=== PATIENT | female | born 2000 | race Caucasian/White ===

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

== ENCOUNTER 2023-09-09 15:09 | Inpatient (IN) ==
--- OUTSIDE RECORDS SUMMARY | 2023-09-09 15:14 | External Medical Summary | Summary of Care ---
Author Name Unknown Organization [facility] Address [address] [place] [address] Phone [phone] Care Team Providers Care Maintenance Services Dispatcher Name Role Phone Trena Moore MD Primary Care Prov ider Reason for Visit * Reason Comments Acute Encounter Details Date Type Department Care Team (Late st Contact Info) Description 08/28/2023 12:40 PM EST Office Visit Family Medicine [address] [id number] Rick Morrison MD [address] [place], [place] [id number] [id number] Viral URI* Allergies No known active allergiesdocumented as of this encounter (statuses as of 08/28/2023) Medications Medication Sig Dispensed Refills Start Date End Date Status Levocetirizine Dihydrochloride (XYZAL) 5 MG TabletIndications:Seas onal allergic rhinitis due to pollen Take 1 Tab by mouth every evening. 30 Tab 11 02/18/2019 Active Vitamin D3 125 MCG (5000 UT) Oral Capsule Take 1 Capsule by mouth in the morning. 0 Active Fluticasone-Salmeterol 115-21 MCG/ACT Inhalation Aerosol (Advair HFA) Inhale 2 Puffs by mouth in the morning and 2 Puffs before bedtime. 12 g 12 01/25/2023 Active FLUoxetine HCl 40 MG Oral Capsule (PROzac) Take 1 Capsule by mouth in the morning. 0 Active Atomoxetine HCl 60 MG Oral Capsule (Strattera) Take 1 Capsule by mouth in the morning. 0 Active Omeprazole 20 MG Oral Capsule Delayed Release (PriLOSEC) Take 1 Capsule by mouth in the morning. 0 Active Vyvanse 40 MG Oral Capsule Take 1 Capsule by mouth in the morning. Every morning.. 0 06/15/2023 Active Ajovy 225 MG/1.5ML Subcutaneous Solution Auto-injector Once a month 0 07/06/2023 Active Nurtec 75 MG Oral Tablet Disintegrating (Rimegepant Sulfate) Take by mouth. 0 Active Atenolol 25 MG Oral Tablet (Tenormin)Indications: Palpitations,Primary hypertension Take 1 Tablet by mouth in the morning. 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 3 Puff IN PRN 11/21/2022 11/21/2023 Active documented as of this encounter (statuses as of 08/28/2023) Active Problems Problem Noted Date Diagnosed Date BMI 31.0-31.9,adult 07/10/2023 Overview: 187 Binge eating 07/10/2023 Overview: on Vyvanse 40 mg Maggie Hargrove Prediabetes 06/19/2023 Overview: 5.7/117 Bipolar 1 disorder 10/13/2022 Witnessed episode of apnea 10/13/2022 Irritable bowel syndrome with diarrhea 0 Adjustment reaction with anxiety and depression 06/29/2018 Migraine without aura and wi thout status migrainosus, not intractable 04/27/2018 Acne vulgaris 01/09/2017 Seasonal allergies documented as of this encounter (statuses as of 08/28/2023) Resolved Problems Problem Noted Date Diagnosed Date Resolved Date Unspecified mood (affective) disorder 10/29/2021 10/13/2022 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/2021 Diarrhea 05/29/2020 07/27/2020 Anxiety and depression 09/18/201910/29 Current moderate episode of major depressive disorder without prior episode 01/28/2019 0 Attention 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 hyperactivity 06/29/2018 01/28/2019 Thoracolumbar back pain 04/27/201801/10 Overweight (BMI 25.0-29.9) 04/27/2018 0 10/13/2022 Allergic rhinitis 04/10/2018 01/28/2019 Allergic conjunctivitis, bilateral 04/10/2018 06/29/2018 Seborrheic dermatitis 01/09/20172017 documented as of this encounter (statuses as of 08/28/2023) Immunizations Name Administration Dates Next Due COVID-19 mRNA, LNP-s, No Pre serve, 2-Dose Series (Pfizer) 09/28/2020,08/31/2020 DTaP Dipth/Tet/Acell Pertussis (Infanrix), Peds 05/02/2005,11/16/2000,1999,10/07,1999 H1N1 2009 Influenza, Intranasal 07/24/2009 HIB PRP-T, 4 dose (ActHib) 11/16/2000,,1999,07/07 HPV Vaccine, 4-Valent 06/10/2011,11/15/2010,11/2010 Hepatitis B, 0-19 yrs 07/10/2000,03/10/2000,11/10 IPV - Polio Virus Vaccine (Inact) 2004,03/10/2000,1999,07/07 MMR - Measles/Mumps/Rubella Vaccine 05/02/2005,1 Meningococcal Conjugate Vacc ine (Menactra/Menveo) 05/04/2016,09/13/2010 PPD 10/29/2021,05/04/2016 Pneumococcal Conjugate Vacci ne, 7 Valent 03/10/2000 Seasonal Influenza Intranasal 09/13/2010, 009,08/21/2006 Seasonal Influenza, PF, 6 M & above, IM , (FluLaval or Fluzone) 06/11/2021,06/29/2020,12/27/2019 Seasonal Influenza, Quadriva lent, No Preserve, IM 07/14/2016 Seasonal Influenza, Split, I IV3, With Preserve, Inj 07/09/2018 TDAP (age 10 and older)(Boostrix) 05/05/2017 TDAP (age 11 and older)(Adacel) 09/13/2010 Varicella Vaccine (Chicken Pox) 03/23/2009,07/10 documented as of this encounter Social History Tobacco Use Types Packs/Day Years Used Date Smoking Tobacco: Never Smokeless Tobacco: Never Alcohol Use Standard Drinks/Week Comments No 0 (1 standard drink = 0.6 oz pur e alcohol) PHQ-2 Answer Date Recorded PHQ-2 Score 17 07/27/2020 Hunger Vital Sign Answer Date Recorded Worried About Running Out of Food in the Last Ye ar Never true 10/21/2019 Ran Out of Food in the Last Year Never true 10/21/2019 Sex and Gender Information Value Date Recorded Sex Assigned at Not on file Gender Identity Not on file Sexual Orientation Not on file Job Start Date Occupation Industry Not on file Not on file Not on file documented as of this encounter Last Filed Vital Signs Vital Sign Reading Time Taken Comments Blood Pressure 128/74 08/28/2023 12:32 PM EST Pulse 101 08/28/2023 12:32 PM EST Temperature 36.1 C (97 F) 08/28/2023 12:32 PM EST Respiratory Rate 16 08/28/2023 12:32 PM EST Oxygen Saturation 99% 08/28/2023 12:32 PM EST Inhaled Oxygen Concentration - - Weight 87.5 kg (193 lb) 08/28/2023 12:32 PM EST Height - - Body Mass Index 32.67 01/25/2023 2:12 PM EDT documented in this encounter Progress Notes * Rick Morrison MD - 08/28/2023 12:34 PM EST Lorrie started getting sick on 08/24 with sore throat, congestion, headache and now a couple of days of nausea and vomiting. She held the metformin that she just started but that does not help. She self tested negative for Covid. Ears hurt. She has sinus pressure. She needs a work excuse Past Medical History: Diagnosis Date Acne vulgaris 01/09/2017 Allergic rhinitis 04/10/2018 Anxiety Attention deficit disorder (ADD) without hyperactivity 06/29/2018 Binge eating 07/10/2023 on Vyvanse 40 mg Maggie Hargrove Bipolar 2 disorder (HCC) Prediabetes 06/14/2023 5.7/117 Seasonal allergies Seborrheic dermatitis 01/09/2017 Thoracolumbar back pain 04/27/2018 Witnessed episode of apnea Past Surgical History: Procedure Laterality Date COLONOSCOPY, DIAGNOSTIC (RECTUM) 07/14/2020 normal bx / COLONOSCOPY FLEXIBLE PROXIMAL DIAGNOSTIC performed by Kaylin Russell DO at [facility] EGD, FLEXIBLE, DIAGNOSTIC 07/14/2020 mild inflammatory changes on bx / ESOPHAGOGASTRODUODENOSCOPY (EGD), FLEXIBLE, TRANSORAL, DIAGNOSTICperformed by Kaylin Russell DO at [facility] REMOVE TONSILS & ADENOIDS, UNDER 12 2002 Review of patient's allergies indicates: No Known Allergies Social History Socioeconomic History Marital status: Significant Other Spouse name: Not on file Number of children: Not on file Years of education: Not on file Highest education level: Not on file Occupational History Not on file Tobacco Use Smoking status: Never Smokeless tobacco: Never Vaping Use Vaping Use: Never used Substance and Sexual Activity Alcohol use: No Drug use: No Sexual activity: Yes Partners: Male control/protection: Condom, Pill Other Topics Concern Not on file Social History Narrative Not on file Social Determinants of Health Financial Resource Strain: Not on file Food Insecurity: No Food Insecurity (10/21/2019) Hunger Vital Sign Worried About Running Out of Food in the Last Year: Never true Ran Out of Food in the Last Year: Never true Transportation Needs: Not on file Physical Activity: Not on file Stress: Not on file Social Connections: Not on file Intimate Partner Violence: Not on file Housing Stability: Not on file Current Outpatient Medications Medication Sig Dispense Refill Levocetirizine Dihydrochloride (XYZAL) 5 MG Tablet Take 1 Tab by mouth every evening. 30 Tab 11 Vitamin D3 125 MCG (5000 UT) Oral Capsule Take 1 Capsule by mouth in the morning. Fluticasone-Salmeterol 115-21 MCG/ACT Inhalation Aerosol (Advair HFA) Inhale 2 Puffs by mouth in the morning and 2 Puffs before bedtime. 12 g 12 FLUoxetine HCl 40 MG Oral Capsule (PROzac) Take 1 Capsule by mouth in the morning. Atomoxetine HCl 60 MG Oral Capsule (Strattera) Take 1 Capsule by mouth in the morning. Omeprazole 20 MG Oral Capsule Delayed Release (PriLOSEC) Take 1 Capsule by mouth in the morning. Vyvanse 40 MG Oral Capsule Take 1 Capsule by mouth in the morning. Every morning.. Ajovy 225 MG/1.5ML Subcutaneous Solution Auto-injector Once a month Nurtec 75 MG Oral Tablet Disintegrating (Rimegepant Sulfate) Take by mouth. Atenolol 25 MG Oral Tablet (Tenormin) Take 1 Tablet by mouth in the morning. 30 Tablet 5 Current Facility-Administered Medications Medication Dose Route Frequency Provider Last Rate Last Admin Albuterol Sulfate (Proventil) (2.5 MG/3ML) 0.083% inhalation solution 2.5 mg 2.5 mg Nebulizer PRN Myrna Dosrey PA-C 2.5 mg at 12/01/22 0905 albuterol (VENTOLIN HFA/PROVENTIL HFA) inhaler 3 Puff Inhalation PRN Myrna Dorsey PA-C O: Blood pressure 128/74, pulse 101, temperature 36.1 C (97 F), temperature source Tympanic, resp. rate 16, weight 87.5 kg (193 lb), SpO2 99%, not currently . General appearance: well developed, well nourished and in no acute distress. PERRLA, EOMI. No scleral icterus. No facial assymmetry. TM's and canals normal. There is a normal gag reflex. Pt has normal teeth and no pharyngeal inflammation. The palate has no lesions and the uvula is normal. Neck is supple without adenopathyor thyromegaly. Chest is symmetrical and moves normally. The lungs are clear without wheezes, rales, rhonchi or rubs, and the heart is regular without murmurs or gallops, or ectopy. PMI not displaced. A: Viral URI (Primary) - RESPIRATORY PATHOGEN PANEL, PCR; Future; Expected date: 08/28/2023 - RETURN TO WORK OR SCHOOL - predniSONE 20 MG Oral Tablet (Deltasone); two pills daily with food for 5 days, then one daily with food - RESPIRATORY PATHOGEN PANEL, PCR Follow Up: Return if symptoms worsen or fail to improve. documented in this encounter Nursing Notes * Lily Guzman LPN - 08/28/2023 12:30 PM EST Congestion, head pressure, nausea and vomiting, st. Symptoms started . Did 3 covid test andall negative. documented in this encounter Plan of Treatment Scheduled Orders Name Type Priority Associated Diagnoses Orde r Schedule RESPIRATORY PATHOGEN PANEL, PCR Lab Routine Viral URI Expected: 08/28/2023 (Approximate), Expires: 08/27/2024 Health Maintenance Due Date Last Done Comments Pneumococcal Vaccine: Pediat rics (0 to 5 Years) and At-Risk Patients (6 to 64 Years) (1 - PCV) 2005 Depression, Most Recent Scor e >= 10 (will fire each visit until score < 10) 07/28/2020 07/27/2020 Gonorrhea / Chlamydia Screen 11/11/202211/2021, 10/15/2020, 12/27/2019, Additional history exists COVID-19 Vaccine (3 - 2022-2 4 season) 2023 09/28/2020, 08/31/2020 Influenza Vaccine (FLU shot) (#1) 2023 06/11/2021, 06/29/2020, 12/27/2019, Additional history exists Pap Smear 10/15/2023 10/15/2020 HbA1c 06/14/2024 06/14/2023 DTaP,Tdap,and Td Vaccines (8 - Td or Tdap) 05/05/2027 05/05/2017, 09/13/2010, 05/02/2005, Additional history exists Hepatitis B Completed 07/10/2000, 02/11, 1999 GARDASIL-HPV IMMUNIZATION SERIES Completed 06/10/2011, 11/15/2010, 09/13/2010 MENINGOCOCCAL (MENACTRA/MENVEO) Completed , 09/13/2010 documented as of this encounter Medical Devices Not on filedocumented as of this encounter Visit Diagnoses Diagnosis Viral URI- Primary Acute upper respiratory infections of unspecified site documented in this encounter Additional Health Concerns Infection Onset Date Last Indicated Resolved Time Respiratory Rule-Out 08/28/2023 08/28/2023 documented as of this encounter Care Teams Maintenance Services Dispatcher Relationship Specialty Start Date End Date Trena Moore MD [address] [place] [address] [place] [id number] PCP - General Family Medicine 04/20/18 documented as of this encounter
--- OUTSIDE RECORDS SUMMARY | 2023-09-09 15:15 | External Medical Summary ---
Author Name Unknown Address Unknown Organization K01:[facility]ORY [facility] - [address] [facility] [place] [address] Laboratory Report Ordering Provider Test Date Status KAMALA KRAUSE 08/28/2023 12:41:48 Final Observation Date Value Abnormality Reference (Units ) Status Adenovirus DNA [Presence] in Nasopharynx by ANTONIETTA with non-probe detection 08/28/2023 12:41:48 Negative Negative Final Human coronavirus 229E RNA [Presence] in Nasopharynx by ANTONIETTA with non-probe detection 08/28/2023 12:41:48 Negative Negative Final Human coronavirus HKU1 RNA [Presence] in Nasopharynx by ANTONIETTA with non-probe detection 08/28/2023 12:41:48 Negative Negative Final Human coronavirus NL63 RNA [Presence] in Nasopharynx by ANTONIETTA with non-probe detection 08/28/2023 12:41:48 Negative Negative Final Human coronavirus OC43 RNA [Presence] in Nasopharynx by ANTONIETTA with non-probe detection 08/28/2023 12:41:48 Negative Negative Final SARS-CoV-2 (COVID-19) RNA [Presence] in Nasopharynx by ANTONIETTA with non-probe detection 08/28/2023 12:41:48 Negative Negative Final Human metapneumovirus RNA [Presence] in Nasopharynx by ANTONIETTA with non-probe detection 08/28/2023 12:41:48 Negative Negative Final Rhinovirus+Enterovirus RNA [Presence] in Nasopharynx by ANTONIETTA with non-probe detection 08/28/2023 12:41:48 Negative Negative Final Influenza virus A RNA [Presence] in Nasopharynx by ANTONIETTA with non-probe detection 08/28/2023 12:41:48 Negative Negative Final Influenza virus B RNA [Presence] in Nasopharynx by ANTONIETTA with non-probe detection 08/28/2023 12:41:48 Negative Negative Final Parainfluenza virus 1 RNA [Presence] in Nasopharynx by ANTONIETTA with non-probe detection 08/28/2023 12:41:48 Negative Negative Final Parainfluenza virus 2 RNA [Presence] in Nasopharynx by ANTONIETTA with non-probe detection 08/28/2023 12:41:48 Negative Negative Final Parainfluenza virus 3 RNA [Presence] in Nasopharynx by ANTONIETTA with non-probe detection 08/28/2023 12:41:48 Negative Negative Final Parainfluenza virus 4 RNA [Presence] in Nasopharynx by ANTONIETTA with non-probe detection 08/28/2023 12:41:48 Negative Negative Final Respiratory syncytial virus RNA [Presence] in Nasopharynx by ANTONIETTA with non-probe detection 08/28/2023 12:41:48 Positive Abnormal Negative Final Respiratory Syncytial virus detected by PCR (amplified probe). Test results reported to [facility]. Bordetella pertussis.pertuss is toxin promoter region [Presence] in Nasopharynx by ANTONIETTA with non-probe detection 08/28/2023 12:41:48 Negative Negative Final Chlamydophila pneumoniae DNA [Presence] in Nasopharynx by ANTONIETTA with non-probe detection 08/28/2023 12:41:48 Negative Negative Final Mycoplasma pneumoniae DNA [P resence] in Nasopharynx by ANTONIETTA with non-probe detection 08/28/2023 12:41:48 Negative Negative Final Bordetella parapertussis IS1 001 DNA [Presence] in Nasopharynx by ANTONIETTA with non-probe detection 08/28/2023 12:41:48 Negative Negative F inal
The primers that detect Rhinovirus may cross react with some Enterorviruses. The validation of bronchial specimens, tracheal aspirates, and throats for this assay was developed and performance characteristics determined by [employer]. The validation of alternate specimen types has not been cleared or approved by the U.S. Food and Drug Administration (FDA). It has been determined that such clearance or approval is not necessary. Performing [place] [facility] [place] [facility] [address]
--- OUTSIDE RECORDS SUMMARY | 2023-09-09 15:15 | External Medical Summary | Summary of Care ---
Author Name Unknown Organization [facility] Address [address] [place] [address] Phone [phone] Care Team Providers Care C D Reactor Operator Name Role Phone Trena Moore MD Primary Care Prov ider Reason for Visit * Reason Comments Acute Encounter Details Date Type Department Care Team (Late st Contact Info) Description 08/28/2023 12:40 PM EST Office Visit Family Medicine [address] [id number] Rick Morrison MD [address] [place], [place] [address] [id number] Viral URI* Allergies No known active [...] 11/21/2022 11/21/2023 Active albuterol (VENTOLIN HFA/PROVENTIL HFA) inhalerIndications: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 3 Puff IN PRN 11/21/2022 [...] performed by Kaylin Russell DO at [facility] EGD, FLEXIBLE, DIAGNOSTIC 07/14/2020 mild inflammatory changes on bx / ESOPHAGOGASTRODUODENOSCOPY (EGD), FLEXIBLE, TRANSORAL, DIAGNOSTICperformed by Kaylin Russell DO at [facility] REMOVE TONSILS & ADENOIDS, UNDER 12 [...] 2.5 mg 2.5 mg Nebulizer PRN Myrna Dorsey PA-C 2.5 mg at 12/01/22 0905 albuterol [...] documented as of this encounter Care Teams C D Reactor Operator Relationship Specialty Start Date End Date Trena Moore MD [address] [place] [address] [place] [id number] PCP - General Family Medicine 04/20/18 documented as of this encounter
--- OUTSIDE RECORDS SUMMARY | 2023-09-09 15:15 | External Medical Summary ---
Author Name Unknown Address Unknown Organization K01:LABORATORY [place] [address] [address] [facility] [address] Laboratory Report Ordering Provider Test Date Status RAY ROJAS 07/28/2023 10:09:00 Final hCG can serve as a screening assay for . However, early may not give a positive hCG test result. In addition, some non- women may have a hCG result slightly higher than the reference limit. Careful interpretation of the hCG with clinical history is required to determine whether the patient may be . Observation Date Value Abnormality Reference (Units ) Status Choriogonadotropin.intact +Beta subunit [Units/volume] in Serum or Plasma 07/28/2023 10:09:00 <0.6 <=1.0 (mIU/mL) Final Performing Location LABORATORY [facility] [place] - [facility] [address] [facility] [address]
[2023-09-09 16:03] LABS: Appearance Urine Clear (Clear); Bacteria Urine Automated 2+ (Negative); Bilirubin Urine Negative (Negative); Blood Urine 1+ (Negative); Cast Urine Automated 0 /lpf (0-5); Color Urine Yellow; Epithelial Cell Urine Auto >30 /lpf (0-5); Glucose Urine UA Negative (Negative); Ketones Urine Negative (Negative); Leukocyte Esterase Urine 1+ (Negative); Nitrite Urine Negative (Negative); Protein Urine Negative (Negative); Specific Gravity Urine 1.011 (1.000-1.030); Urobilinogen Urine Negative (Negative)
--- NOTE | 2023-09-09 16:20 | Emergency Department Note ---
Impression & Plan Ureteritis, Abdominal pain, Leukocytosis ED Provider Note CHIEF COMPLAINT: Lower abdominal pain with radiation to her left lower back HISTORY OF PRESENTING ILLNESS: This 23-year-old female patient presents to the emergency department for evaluation of lower abdominal pain and cramping that radiates to the left side of her lower back. Symptoms started 4 days ago. Denies any urinary symptoms other than urinating a little bit more frequently than normal. Denies any fevers or chills. Has nausea, but no vomiting. The patient has a history of ovarian cyst that tend to flare with her menses. However, usually her symptoms resolve quickly, but these symptoms seem more severe and are not going away. She is due for her period in 8 days. Denies vaginal discharge or abnormal vaginal bleeding. Recently got over RSV, but no longer coughing and denies chest pain or SOB. She rates her discomfort as 8/10. Has taken ibuprofen and Tylenol with minimal improvement of her symptoms. Zofran has not helped the nausea. Has not taken anything today yet. REVIEW OF SYSTEMS: See HPI for pertinent positives and pertinent negatives. ALLERGIES: NKDA MEDICATIONS: Latuda, Vyvanse, Trazodone, Citrucel, Xyzal, Folic Acid, Topamax, Ajovy PAST MEDICAL HISTORY: ADHD, Mood disorder, Sleep disorder, Binge eating disorder, Allergic Rhinitis, Migraines, chronic IBS, history of ovarian cysts PHYSICAL EXAM: VITALS: Vitals are noted on the nurse's note and reviewed by myself. GENERAL: Non toxic, no acute distress, non-diaphoretic. SKIN: Capillary refill <2 sec. EYES: PERRLA. EOMI. Conjunctivae without injection, sclerae without icterus. NOSE: Patent without discharge. MOUTH: Mucous membranes moist. Uvula midline. Airway patent. NECK: Supple without nuchal rigidity. HEART: Regular rate and rhythm without murmurs gallops or rubs. LUNGS: Clear to auscultation bilaterally without wheezes, rales or rhonchi. No retractions or accessory muscle use. ABDOMEN: Positive bowel sounds x 4. Normal tympanic percussion. Soft, diffuse tenderness to palpation over the entire abdomen, but worse in the lower quadrants. Mildly positive CVA tenderness bilaterally. No masses or organomegaly. Pink sign negative. No guarding or rebound tenderness. REPEAT ABDOMINAL EXAM: When I reevaluated the patient after her workup was completed, the patient did look more ill than when I first examined her. Repeat abdominal exam showed that she had increased lower abdominal tenderness with increased bilateral CVA tenderness worse on the left. She still had no rebound tenderness or rigidity, but did have mild guarding. MUSCULOSKELETAL: No gross musculoskeletal defects. NEURO: Patient was alert and oriented. No focal neurological deficits. DIFFERENTIAL DIAGNOSIS: Differential diagnosis includes hepatitis, pancreatitis, cholecystitis, cholelithiasis, appendicitis, kidney stone, pyelonephritis, UTI, gastritis, gastroenteritis, mesenteric adenitis, obstruction, constipation, hernia, abdominal abscess, perforation, diverticulitis, IBD, ischemic colitis, abdominal aortic aneurysm, , ectopic , ovarian cyst, ovarian torsion, acute salpingitis, or others. ED COURSE AND MEDICAL DECISION MAKING: MONITOR: Continuous monitor technician: Order was placed for continuous monitor technician. Patient was placed on the monitor technician and continuous pulse ox. Patient was noted to be in normal sinus rhythm at an initial rate of 90 bpm per my interpretation. MEDICATIONS GIVEN: 1 L normal saline solution bolus. Toradol 10 mg IV and Zofran 4 mg IV. Morphine 4 mg IV and Reglan 10 mg IV. Rocephin 2 g IV. INTERPRETATION OF LABS: I interpreted the labs with full lab results as below in the lab section of this note. White blood cell count elevated at 21. Hemoglobin normal at 13.3. Platelet count elevated at 416. CMP without significant abnormalities. Lactate was normal, but this was after IV fluids. Procalcitonin normal. Serum hCG is negative. Urinalysis with 1+ blood, 1+ leukocytes, 10-30 white blood cells, 5-10 red blood cells, greater than 30 epithelial cells, and 2+ bacteria. Urine culture is pending. Blood cultures pending. INTERPRETATION OF IMAGING: Imaging studies were interpreted by myself and read by radiology as per the imaging section of this note. Pelvic ultrasound negative for acute abnormalities and no evidence for ovarian cyst or ovarian torsion. CT scan of the abdomen and pelvis with IV contrast shows a cystitis with left sided ascending ureteritis, but no hydronephrosis or pyelonephritis. No evidence for appendicitis. Small amount of free pelvic fluid is likely physiologic. No other acute abnormalities. CONSULTATIONS: On-call hospitalist MDM SUMMARY: The patient was seen during a time of extreme volume and extreme acuity. Nursing triage protocols were initiated with IV lock, labs, and/or imaging studies conducted by protocol in the triage area. The patient was initially evaluated in a triage room and then re-examined once they were taken back to an exam room. Laboratory studies with a significant leukocytosis at 21,000. Urinalysis does appear consistent with an infection with urine culture pending. Lactate and procalcitonin normal, but these were after IV fluids. Blood cultures are pending. Pelvic ultrasound unremarkable. CT scan of the abdomen pelvis with IV contrast showed a cystitis with left sided ascending ureteritis, but no pyelonephritis or abscess. Initially the patient did have lower abdominal pain and mild CVA tenderness bilaterally when I examined her in triage. When I reexamined the patient when she was taken back to a room, her abdominal pain and CVA tenderness had worsened and she continued with nausea and pain despite the IV fluids, Toradol, and Zofran. She was then medicated with morphine and Reglan. The patient was given Rocephin 2 g IV. Due to the significant leukocytosis, the ascending infection on CT scan, and worsening symptoms, I discussed admission versus discharge with the patient. The patient feels her symptoms are getting worse and she agrees with admission for further inpatient evaluation and treatment. I spoke with the on-call hospitalist who agreed to admit the patient for further management. Please refer to their dictation for further details. The patient's care was transferred in stable condition. DIAGNOSIS: Left-sided ascending ureteritis Leukocytosis Abdominal pain Past Med/Surg History Medical History Vitamin D deficiency Scoliosis IBS (irritable bowel syndrome) Chronic gastritis Colitis Bipolar disorder Attention deficit disorder (ADD) Anxiety and depression High cholesterol Migraines Surgical History History of reduction of closed fracture History of tooth extraction History of tonsillectomy and adenoidectomy History of esophagogastroduodenoscopy (EGD) History of colonoscopy Family History Father Hypertension Mother Hypertension Family history of diabetes mellitus Grandfather (Paternal) Esophageal cancer Prostate cancer Heart disease Cancer of sinus Grandfather (Maternal) Heart disease Asthma Other No family history of adverse response to anesthesia No family history of bleeding disorder Social History Smoking Status: Never smoker Second Hand Exposure: No; Do You Dip or Chew Tobacco: No; Hx Alcohol Use: Yes Alcohol Intake Frequency: Monthly or Less Hx Substance Use: No Preferred Language: Taiwanese Punch Finisher Required: No Beliefs That Will Affect Care: None marital status: Single Current Living Situation: Family Current Living Situation Comment: WITH FAMILY AND BOYFRIEND current occupational status: employed current occupation: [employer] Feels Safe at Home: Yes Assistive Devices: Glasses Allergies Allergies Allergy/AdvReac Type Severity Reaction Status Date / Time coconut AdvReac Vomiting Verified 09/09/23 21:40 Home Meds Home Medications Medication Instructions Recorded Confirmed levocetirizine 5 mg tablet (Xyzal) 5 mg PO QAM 12/23/20 09/09/23 folic acid 1 mg tablet 1 mg PO DAILY 09/09/23 09/09/23 lisdexamfetamine 30 mg capsule 30 mg PO QAM 09/09/23 09/09/23 (Vyvanse) lurasidone 40 mg tablet 40 mg PO DAILYBD 09/09/23 09/09/23 methylcellulose (laxative) 500 mg 500 mg PO AMPM 09/09/23 09/09/23 tablet (Citrucel) topiramate 50 mg capsule 50 mg PO HS 09/09/23 09/09/23 sprinkle,extended release 24 hr (Qudexy XR) trazodone 50 mg tablet 50 mg PO HS 09/09/23 09/09/23 Results & Data (ED) Vital Signs Vital Signs - 24 hr 09/09/23 15:46 09/09/23 18:49 Temperature 36.8 C Temperature Source Oral Pulse Rate 87 Pulse Rate [Finger] 82 Respiratory Rate 18 16 Respiratory Effort / Characteristics Non-Labored Spontaneous Non-Labored Spontaneous Respiratory Depth Normal Normal Respiratory Pattern Regular Blood Pressure 135/82 Blood Pressure [Right Arm] 118/70 Blood Pressure Mean 99 Blood Pressure Mean [Right Arm] 86 Pulse Oximetry 99 99 Oxygen Delivery Method Room Air Room Air Sepsis Recent Fever Within 48 Hours No Sepsis New/Unexplained Change in Mental Status No Sepsis Action Taken by Nursing No Action Required Laboratory Data 09/09/23 17:21 09/09/23 17:21 Lab Results 09/09/23 09/09/2323 Range/Units 15:47 17:21 20:38 WBC 21.00 H (4.8-10.8) K/ul RBC 4.73 (4.20-5.40) M/uL Hgb 13.3 (12.0-16.0) g/dl Hct 39.9 (37.0-47.0) % MCV 84.4 (80.0-100.0) fL MCH 28.1 (25.0-34.0) pg MCHC 33.3 (32.0-36.0) g/dL RDW Std Deviation 43.6 (36.4-46.3) fL RDW Coeff of Marlys 14.0 (11.5-14.5) % Plt Count 416 H (130-400) K/uL MPV 8.7 L (9.4-12.4) fL Immature Gran % (Auto) 0.6 % Neut % (Auto) 71.2 % Lymph % (Auto) 20.9 % Knott % (Auto) 5.8 % Eos % (Auto) 1.2 % Baso % (Auto) 0.3 % Neut # (Auto) 14.97 H (1.40-6.50) K/uL Lymph # (Auto) 4.39 H (1.20-3.40) K/uL Knott # (Auto) 1.21 H (0.11-0.59) K/uL Eos # (Auto) 0.25 (0.00-0.50) K/uL Baso # (Auto) 0.06 (0.00-0.20) K/uL Immature Gran # (Auto) 0.12 (0.01-0.20) K/uL Sodium 136 (136-145) mmol/L Potassium 4.0 (3.5-5.1) mmol/L Chloride 104 (98-107) mmol/L Carbon Dioxide 26 (21-32) mmol/L Anion Gap 6 (3-11) BUN 16 (6-23) mg/dl Creatinine 0.79 (0.6-1.2) mg/dl Est Cr Clr Drug Dosing 114.5 ml/min Est GFR ( Amer) 121.4 ml/min Est GFR (Non-Af Amer) 104.8 ml/min BUN/Creatinine Ratio 20.3 H (10-20) Glucose 85 (70-99(Fasting)) mg/dl Lactate 0.7 (0.4-2.0) mmol/L Calcium 9.2 (8.6-10.3) mg/dl Magnesium 2.0 (1.7-2.4) mg/dl Total Bilirubin 0.3 (0.2-1.0) mg/dl AST 12 L (13-39) U/L ALT 12 (7-52) U/L Alkaline Phosphatase 54 (34-104) U/L Total Protein 7.5 (6.0-8.3) gm/dl Albumin 4.3 (3.4-5.0) gm/dl Globulin 3.2 (2.5-4.0) gm/dl Albumin/Globulin Ratio 1.3 (0.9-2) Lipase 22 (11-82) U/L Procalcitonin 0.05 (0-0.5) ng/ml HCG, Qual Negative (Negative) Urine Color Yellow Urine Appearance Clear (Clear) Urine pH 7.0 (4.5-7.5) Ur Specific Simms 1.011 (1.000-1.030) Urine Protein Negative (Negative) Urine Glucose (UA) Negative (Negative) Urine Ketones Negative (Negative) Urine Blood 1+ H (Negative) Urine Nitrite Negative (Negative) Urine Bilirubin Negative (Negative) Urine Urobilinogen Negative (Negative) Ur Leukocyte Esterase 1+ H (Negative) Urine WBC (Auto) 10-30 H (0-5) /hpf Urine RBC (Auto) 5-10 H (0-4) /hpf U Hyaline Cast (Auto) 0 (0-5) /lpf U Epithel Cells (Auto) >30 H (0-5) /lpf Urine Bacteria (Auto) 2+ H (Negative) Administered Medications Discontinued Medications Sodium Chloride (Nss) 1,000 mls @ 999 mls/hr IV .Q1H1M ONE Stop: 09/09/23 17:28 Last Infusion: 09/09/23 18:49 Dose: Infused Documented By: Admin: 09/09/23 17:19 Dose: 999 mls/hr Documented By: SADIE Ceftriaxone Sodium (Rocephin) 2,000 mg in 50 mls @ 100 mls/hr IV NOW STA Stop: 09/09/23 19:46 Last Admin: 09/09/23 20:55 Dose: 100 mls/hr Documented By: JEROMY Ioversol (Optiray 320 500ml) 88 ml IV ONCE ONE Stop: 09/09/23 18:33 Last Admin: 09/09/23 18:32 Dose: 88 ml Documented By: COLLIN Ketorolac Tromethamine (Ketorolac Tromethamine 15 Mg/Ml Vial) 10 mg IV NOW ONE Stop: 09/09/23 16:29 Last Admin: 09/09/23 17:20 Dose: 10 mg Documented By: SADIE Metoclopramide HCl (Metoclopramide Hcl Inj 5 Mg/Ml 2 Ml Vial) 10 mg IV NOW STA Stop: 09/09/23 19:30 Last Admin: 09/09/23 20:06 Dose: 10 mg Documented By: JEROMY Morphine Sulfate (Morphine Sulfate 4 Mg/Ml 1 Ml Carp\Vial) 4 mg IV NOW STA Stop: 09/09/23 19:36 Last Admin: 09/09/23 20:06 Dose: 4 mg Documented By: JEROMY Ondansetron HCl (Ondansetron Inj 2 Mg/Ml 2 Ml Vial) 4 mg IV NOW STA Stop: 09/09/23 16:29 Last Admin: 09/09/23 17:20 Dose: 4 mg Documented By: SADIE Imaging Data Radiologist's Impression: Abdomen/Pelvis CT 09/09/23 16:[address] WITH IV CONTRAST CT DOSE: 1236.01 mGy.cm HISTORY: Acute generalized abdominal pain with left-sided flank pain Abdominal and flank pain TECHNIQUE: Multiaxial CT images of the abdomen and pelvis were performed following the IV administration of 80 cc of Optiray, A dose lowering technique was utilized adhering to the principles of ALARA. COMPARISON STUDY: 07/01/2021 FINDINGS: The lung bases are clear. The liver, spleen, contracted gallbladder, pancreas, and adrenal glands are within normal limits. Symmetric enhancement of the kidneys. Mild pericecal thickening and enhancement of the left ureter. Circumferential urinary bladder wall thickening with mucosal hyperemia. Unremarkable uterus with bilateral involuting ovarian follicles. Small amount of likely physiologic free pelvic fluid. No bowel wall thickening or obstruction. Stool filled terminal ileum. Noninflamed appendix. Unremarkable soft tissues. No acute fracture. IMPRESSION: 1. Findings suggestive of cystitis with left-sided ascending ureteritis. Correlate with urinalysis. 2. No hydronephrosis or CT evidence of acute pyelonephritis. 3. No bowel obstruction or bowel wall thickening. 4. No CT evidence of acute appendicitis. 5. Small amount of free pelvic fluid is likely physiologic. ACT 112: Negative or not required by law. The above report was generated using voice recognition software. It may contain grammatical, syntax or spelling errors. Electronically signed by: Franck Brambila M.D. 09/09/2023 7:09 PM Pelvis Ultrasound 09/09/23 16:28 US pelvic complete HISTORY: 23 years-old Female Pelvic pain, h/o cysts . Acute generalized pelvic pain COMPARISON: CT abdomen and pelvis of same day TECHNIQUE: Multiple real-time sonographic images of the deep pelvic structures were obtained transabdominally and transvaginally assessing grayscale appearance, color and spectral flow FINDINGS: TRANSABDOMINAL: Anteflexed uterus measures 7.5 x 3.9 x 5.4 cm. The ovaries are partially obscured by bowel gas however demonstrate arterial inflow. Endometrium measures 9 TRANSVAGINAL: Unremarkable sonographic appearance of uterus. Endometrium measures 9 mm and is homogeneous. Right ovary measures 4.5 x 2.1 x 3.1 cm. The left ovary measures 2.7 x 3.8 x 2.2 cm. Arterial inflow and venous outflow documented bilaterally. Bilateral ovarian follicles with possible small bilateral involuting follicles. Trace free pelvic fluid it is likely physiologic. IMPRESSION: Unremarkable pelvic ultrasound. ACT 112: Negative or not required by law. The above report was generated using voice recognition software. It may contain grammatical, syntax or spelling errors. Electronically signed by: Franck Brambila M.D. 09/09/2023 7:03 PM Discharge Plan Visit Data Chief Complaint: Abdominal Pain Stated Complaint: ABDOMINAL AND LOWER BACK PAIN ED Provider: Dakota Bejarano ED Midlevel Provider: Daily Islas Discharge Problem: Ureteritis, Abdominal pain, Leukocytosis Patient Disposition: Admitted As Inpatient Condition: Good Forms Stand Alone Forms: timeplazza Prescriptions Prescriptions: No Action levocetirizine [Xyzal] 5 mg Tablet 5 mg PO QAM lurasidone 40 mg tablet 40 mg PO DAILYBD topiramate [Qudexy XR] 50 mg capsule,sprinkle,ER 24hr 50 mg PO HS trazodone 50 mg tablet 50 mg PO HS lisdexamfetamine [Vyvanse] 30 mg capsule 30 mg PO QAM folic acid 1 mg Tablet 1 mg PO DAILY Citrucel 500 mg Tablet 500 mg PO AMPM Referrals Referrals: Trena Mauro MD [Outside Practitioners] - Discharge Problem: Abdominal pain Qualifiers: Abdominal location: generalized Qualified Code(s): R10.84 - Generalized abdominal pain Leukocytosis Qualifiers: Leukocytosis type: unspecified Qualified Code(s): D72.829 - Elevated white blood cell count, unspecified
[2023-09-09] MEDS ORDERED: SODIUM CHLORIDE 0.9% 1,000 ML IV ONE (16:28)
[2023-09-09] MEDS ORDERED: KETOROLAC TROMETHAMINE 15 MG/ML VIAL IV ONE (16:28)
[2023-09-09] MEDS ORDERED: ONDANSETRON INJ 2 MG/ML 2 ML VIAL IV STA (16:28)
[2023-09-09 17:42] LABS: Basophils # (auto) 0.06 K/uL (0.00-0.20); Basophils % (auto) 0.3 %; Eosinophils # (auto) 0.25 K/uL (0.00-0.50); Eosinophils % (auto) 1.2 %; Hematocrit (blood only) 39.9 % (37.0-47.0); Hemoglobin 13.3 g/dl (12.0-16.0); Immature Granulocytes # (auto) 0.12 K/uL (0.01-0.20); Immature Granulocytes % (auto) 0.6 %; Lymphocytes # (auto) 4.39 K/uL (1.20-3.40); Lymphocytes % (auto) 20.9 %; Mean Corpuscular Hemoglobin 28.1 pg (25.0-34.0); Mean Corpuscular Hgb Conc 33.3 g/dL (32.0-36.0); Mean Corpuscular Volume 84.4 fL (80.0-100.0); Mean Platelet Volume 8.7 fL (9.4-12.4); Monocytes # (auto) 1.21 K/uL (0.11-0.59); Monocytes % (auto) 5.8 %; Neutrophils # (auto) 14.97 K/uL (1.40-6.50); Neutrophils % (auto) 71.2 %; Platelet Count 416 K/uL (130-400); RDW Standard Deviation 43.6 fL (36.4-46.3); Red Blood Count 4.73 M/uL (4.20-5.40)
[2023-09-09 18:00] LABS: Albumin Globulin Ratio 1.3 (0.9-2); Albumin Level 4.3 gm/dl (3.4-5.0); BUN Creatinine Ratio 20.3 (10-20); Bilirubin,Total 0.3 mg/dl (0.2-1.0); Calcium 9.2 mg/dl (8.6-10.3); Creatinine Clr Calc Pharmacy 114.5 ml/min; Est GFR (African American) 121.4 ml/min; Est GFR (Non-African American) 104.8 ml/min; Globulin 3.2 gm/dl (2.5-4.0); Total Protein 7.5 gm/dl (6.0-8.3)
[2023-09-09 18:02] LABS: Pregnancy Test, Serum Negative (Negative)
[2023-09-09] MEDS ORDERED: OPTIRAY 320 500ml IV ONE (18:32)
--- NOTE | 2023-09-09 19:06 | Ultrasound Report ---
US pelvic complete HISTORY: 23 years-old Female Pelvic pain, h/o cysts . Acute generalized pelvic pain COMPARISON: CT abdomen and pelvis of same day TECHNIQUE: Multiple real-time sonographic images of the deep pelvic structures were obtained transabd ominally and transvaginally assessing grayscale appearance, color and spectral flow FINDINGS: TRANSABDOMINAL: Anteflexed uterus measures 7.5 x 3.9 x 5.4 cm. The ovaries are partially obscured by bowel gas howeve r demonstrate arterial inflow. Endometrium measures 9 TRANSVAGINAL: Unremarkable sonographic appearance of uterus. Endometrium measures 9 mm and is homogeneous. Right ov kyler measures 4.5 x 2.1 x 3.1 cm. The left ovary measures 2.7 x 3.8 x 2.2 cm. Arterial inflow and veno us outflow documented bilaterally. Bilateral ovarian follicles with possible small bilateral involuti ng follicles. Trace free pelvic fluid it is likely physiologic. IMPRESSION: Unremarkable pelvic ultrasound. ACT 112: Negative or not required by law. The above report was generated using voice recognition software. It may contain grammatical, syntax o r spelling errors. Electronically signed by: Franck Brambila M.D. 09/09/2023 7:03 PM
--- NOTE | 2023-09-09 19:11 | CT Scan Report ---
ABDOMEN AND PELVIS CT WITH IV CONTRAST CT DOSE: 1236.01 mGy.cm HISTORY: Acute generalized abdominal pain with left-sided flank pain Abdominal and flank pain TECHNIQUE: Multiaxial CT images of the abdomen and pelvis were performed following the IV administrat ion of 80 cc of Optiray, A dose lowering technique was utilized adhering to the principles of ALARA. COMPARISON STUDY: 07/01/2021 FINDINGS: The lung bases are clear. The liver, spleen, contracted gallbladder, pancreas, and adrenal glands are within normal limits. Symmetric enhancement of the kidneys. Mild pericecal thickening and enhancement of the left ureter. Circumferential urinary bladder wall thickening with mucosal hyperemi a. Unremarkable uterus with bilateral involuting ovarian follicles. Small amount of likely physiologi c free pelvic fluid. No bowel wall thickening or obstruction. Stool filled terminal ileum. Noninflamed appendix. Unremarka ble soft tissues. No acute fracture. IMPRESSION: 1. Findings suggestive of cystitis with left-sided ascending ureteritis. Correlate with urinalysis. 2. No hydronephrosis or CT evidence of acute pyelonephritis. 3. No bowel obstruction or bowel wall thickening. 4. No CT evidence of acute appendicitis. 5. Small amount of free pelvic fluid is likely physiologic. ACT 112: Negative or not required by law. The above report was generated using voice recognition software. It may contain grammatical, syntax o r spelling errors. Electronically signed by: Franck Brambila M.D. 09/09/2023 7:09 PM
[2023-09-09] MEDS ORDERED: cefTRIAXone SODIUM 2,000 MG/50 ML BAG IV STA (19:17)
[2023-09-09] MEDS ORDERED: METOCLOPRAMIDE HCL INJ 5 MG/ML 2 ML VIAL IV STA (19:29)
[2023-09-09] MEDS ORDERED: MoRPHine SULFATE 4 MG/ML 1 ML CARP\\VIAL IV STA (19:35)
--- NOTE | 2023-09-09 21:28 | History & Physical Report ---
Date of Service September 09, 2023 Assessment & Plan (1) Ureteritis: Plan: 23-year-old female with past medical history significant for prediabetes, witnessed episode of apnea, irritable bowel syndrome with diarrhea, migraine, bipolar 1 disorder, seasonal allergies, adjustment reaction with anxiety and depression, comes because of back pain and abdominal pain going on for 1 week. Associated with nausea. Frequent micturition. No burning micturition. No blo od in the urine. No fevers. Has headaches. No sore throat. No cough. No chest pain or shortness of breath. Normal bowel movements. Hemodynamically stable. Ascending ureteritis UTI Abdominal pain and back pain Leukocytosis IV Rocephin IV fluids, IV Toradol as needed Close monitor DVT prophylaxis SCDs for now Disposition Medical floor full code History of Present Illness Chief Complaint: Abdominal pain Primary Care Provider: Catalina Meadows, 23-year-old female with past medical history significant for prediabetes, witnessed episode of apnea, irritable bowel syndrome with diarrhea, migraine, bipolar 1 disorder, seasonal allergies, adjustment reaction with anxiety and depression, comes because of back pain and abdominal pain going on for 1 week. Associated with nausea. Frequent micturition. No burning micturition. No blood in the urine. No fevers. Has headaches. No sore throat. No cough. No chest pain or shortness of breath. Normal bowel movements. Hemodynamically stable. Past medical history. As mentioned above Past surgical history. Colonoscopy and EGD. Tonsillectomy and adenoidectomy. Social history. Smoking. No alcohol use. No drug use. Family history. Mother has allergies. Hypertension. Psoriasis. Diabetes. Father has heart disorder. Allergies. Sister has ADHD. Allergies Allergy/AdvReac Type Severity Reaction Status Date / Time coconut AdvReac Vomiting Verified 09/09/23 21:40 Home Medications Medication Instructions Recorded Confirmed Type levocetirizine 5 mg tablet (Xyzal) 5 mg PO QAM 12/23/20 09/09/23 History folic acid 1 mg tablet 1 mg PO DAILY 09/09/23 09/09/23 History lisdexamfetamine 30 mg capsule 30 mg PO QAM 09/09/23 09/09/23 History (Vyvanse) lurasidone 40 mg tablet 40 mg PO DAILYBD 09/09/23 09/09/23 History methylcellulose (laxative) 500 mg 500 mg PO AMPM 09/09/23 09/09/23 History tablet (Citrucel) topiramate 50 mg capsule 50 mg PO HS 09/09/23 09/09/23 History sprinkle,extended release 24 hr (Qudexy XR) trazodone 50 mg tablet 50 mg PO HS 09/09/23 09/09/23 History Past Med/Surg History Medical History Vitamin D deficiency Scoliosis IBS (irritable bowel syndrome) Chronic gastritis Colitis Bipolar disorder Attention deficit disorder (ADD) Anxiety and depression High cholesterol Migraines Surgical History History of reduction of closed fracture History of tooth extraction History of tonsillectomy and adenoidectomy History of esophagogastroduodenoscopy (EGD) History of colonoscopy Family History Father Hypertension Mother Hypertension Family history of diabetes mellitus Grandfather (Paternal) Esophageal cancer Prostate cancer Heart disease Cancer of sinus Grandfather (Maternal) Heart disease Asthma Other No family history of adverse response to anesthesia No family history of bleeding disorder Social History Smoking Status: Current every day smoker Tobacco Type: E-cigarettes / Vaping Second Hand Exposure: No; Do You Dip or Chew Tobacco: No; Hx Alcohol Use: No Hx Substance Use: No Preferred Language: Upper Sorbian Communication Ability: Effective Maintenance Coordinator Required: No Beliefs That Will Affect Care: None marital status: Single Current Living Situation: Significant Other Current Living Situation Comment: WITH FAMILY AND BOYFRIEND current occupational status: employed 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 Head- atraumatic Eyes- PERRL. ENT- oropharynx clear Neck- supple, no JVD. Lungs- clear to auscultation no wheezing or crackles Heart- regular rhythm; no murmur, no gallop. Abdomen- normal bowel sounds, soft, abdominal discomfort present, b/l cva tenderness. no distension Extremities- no pretibial edema, no erythema seen Neuro- alert, oriented x 3; PERRL, no facial palsy; no dysarthria; moves extremities. Skin- warm & dry Results & Data Results & Data Vital Signs (Past 12 Hours) Vital Signs Temp Pulse Pulse Resp BP BP Pulse Ox 09/09/23 18:49 82 16 118/70 99 09/09/23 15:46 36.8 C 87 18 135/82 99 O2 Del Method 09/09/23 18:49 Room Air 09/09/23 15:46 Room Air Diagnostic Findings Laboratory Results WBC 21.00 K/ul (4.8-10.8) H 09/09/23 17:21 RBC 4.73 M/uL (4.20-5.40) 09/09/23 17:21 Hgb 13.3 g/dl (12.0-16.0) 09/09/23 17:21 Hct 39.9 % (37.0-47.0) 09/09/23 17:21 MCV 84.4 fL (80.0-100.0) 09/09/23 17:21 MCH 28.1 pg (25.0-34.0) 09/09/23 17:21 MCHC 33.3 g/dL (32.0-36.0) 09/09/23 17:21 RDW Std Deviation 43.6 fL (36.4-46.3) 09/09/23 17:21 RDW Coeff of Marlys 14.0 % (11.5-14.5) 09/09/23 17:21 Plt Count 416 K/uL (130-400) H 09/09/23 17:21 MPV 8.7 fL (9.4-12.4) L 09/09/23 17:21 Immature Gran % (Auto) 0.6 % 09/09/23 17:21 Neut % (Auto) 71.2 % 09/09/23 17:21 Lymph % (Auto) 20.9 % 09/09/23 17:21 [place] % (Auto) 5.8 % 09/09/23 17:21 Eos % (Auto) 1.2 % 09/09/23 17:21 Baso % (Auto) 0.3 % 09/09/23 17:21 Neut # (Auto) 14.97 K/uL (1.40-6.50) H 09/09/23 17:21 Lymph # (Auto) 4.39 K/uL (1.20-3.40) H 09/09/23 17:21 [place] # (Auto) 1.21 K/uL (0.11-0.59) H 09/09/23 17:21 Eos # (Auto) 0.25 K/uL (0.00-0.50) 09/09/23 17:21 Baso # (Auto) 0.06 K/uL (0.00-0.20) 09/09/23 17:21 Immature Gran # (Auto) 0.12 K/uL (0.01-0.20) 09/09/23 17:21 Sodium 136 mmol/L (136-145) 09/09/23 17:21 Potassium 4.0 mmol/L (3.5-5.1) 09/09/23 17:21 Chloride 104 mmol/L (98-107) 09/09/23 17:21 Carbon Dioxide 26 mmol/L (21-32) 09/09/23 17:21 Anion Gap 6 (3-11) 09/09/23 17:21 BUN 16 mg/dl (6-23) 09/09/23 17:21 Creatinine 0.79 mg/dl (0.6-1.2) 09/09/23 17:21 Est Cr Clr Drug Dosing 114.5 ml/min 09/09/23 17:21 Est GFR ( Amer) 121.4 ml/min 09/09/23 17:21 Est GFR (Non-Af Amer) 104.8 ml/min 09/09/23 17:21 BUN/Creatinine Ratio 20.3 (10-20) H 09/09/23 17:21 Glucose 85 mg/dl (70-99(Fasting)) 09/09/23 17:21 Lactate 0.7 mmol/L (0.4-2.0) 09/09/23 20:38 Calcium 9.2 mg/dl (8.6-10.3) 09/09/23 17:21 Magnesium 2.0 mg/dl (1.7-2.4) 09/09/23 17:21 Total Bilirubin 0.3 mg/dl (0.2-1.0) 09/09/23 17:21 AST 12 U/L (13-39) L 09/09/23 17:21 ALT 12 U/L (7-52) 09/09/23 17:21 Alkaline Phosphatase 54 U/L (34-104) 09/09/23 17:21 Total Protein 7.5 gm/dl (6.0-8.3) 09/09/23 17:21 Albumin 4.3 gm/dl (3.4-5.0) 09/09/23 17:21 Globulin 3.2 gm/dl (2.5-4.0) 09/09/23 17:21 Albumin/Globulin Ratio 1.3 (0.9-2) 09/09/23 17:21 Lipase 22 U/L (11-82) 09/09/23 17:21 Procalcitonin 0.05 ng/ml (0-0.5) 09/09/23 17:21 HCG, Qual Negative (Negative) 09/09/23 17:21 Urine Color Yellow 09/09/23 15:47 Urine Appearance Clear (Clear) 09/09/23 15:47 Urine pH 7.0 (4.5-7.5) 09/09/23 15:47 Ur Specific [place] 1.011 (1.000-1.030) 09/09/23 15:47 Urine Protein Negative (Negative) 09/09/23 15:47 Urine Glucose (UA) Negative (Negative) 09/09/23 15:47 Urine Ketones Negative (Negative) 09/09/23 15:47 Urine Blood 1+ (Negative) H 09/09/23 15:47 Urine Nitrite Negative (Negative) 09/09/23 15:47 Urine Bilirubin Negative (Negative) 09/09/23 15:47 Urine Urobilinogen Negative (Negative) 09/09/23 15:47 Ur Leukocyte Esterase 1+ (Negative) H 09/09/23 15:47 Urine WBC (Auto) 10-30 /hpf (0-5) H 09/09/23 15:47 Urine RBC (Auto) 5-10 /hpf (0-4) H 09/09/23 15:47 U Hyaline Cast (Auto) 0 /lpf (0-5) 09/09/23 15:47 U Epithel Cells (Auto) >30 /lpf (0-5) H 09/09/23 15:47 Urine Bacteria (Auto) 2+ (Negative) H 09/09/23 15:47 Impressions Abdomen/Pelvis CT 09/09/23 16:[address] WITH IV CONTRAST CT DOSE: 1236.01 mGy.cm HISTORY: Acute generalized abdominal pain with left-sided flank pain Abdominal and flank pain TECHNIQUE: Multiaxial CT images of the abdomen and pelvis were performed following the IV administration of 80 cc of Optiray, A dose lowering technique was utilized adhering to the principles of ALARA. COMPARISON STUDY: 07/01/2021 FINDINGS: The lung bases are clear. The liver, spleen, contracted gallbladder, pancreas, and adrenal glands are within normal limits. Symmetric enhancement of the kidneys. Mild pericecal thickening and enhancement of the left ureter. Circumferential urinary bladder wall thickening with mucosal hyperemia. Unremarkable uterus with bilateral involuting ovarian follicles. Small amount of likely physiologic free pelvic fluid. No bowel wall thickening or obstruction. Stool filled terminal ileum. Noninflamed appendix. Unremarkable soft tissues. No acute fracture. IMPRESSION: 1. Findings suggestive of cystitis with left-sided ascending ureteritis. Correlate with urinalysis. 2. No hydronephrosis or CT evidence of acute pyelonephritis. 3. No bowel obstruction or bowel wall thickening. 4. No CT evidence of acute appendicitis. 5. Small amount of free pelvic fluid is likely physiologic. ACT 112: Negative or not required by law. The above report was generated using voice recognition software. It may contain grammatical, syntax or spelling errors. Electronically signed by: Franck Brambila M.D. 09/09/2023 7:09 PM Pelvis Ultrasound 09/09/23 16:28 US pelvic complete HISTORY: 23 years-old Female Pelvic pain, h/o cysts . Acute generalized pelvic pain COMPARISON: CT abdomen and pelvis of same day TECHNIQUE: Multiple real-time sonographic images of the deep pelvic structures were obtained transabdominally and transvaginally assessing grayscale appearance, color and spectral flow FINDINGS: TRANSABDOMINAL: Anteflexed uterus measures 7.5 x 3.9 x 5.4 cm. The ovaries are partially obscu red by bowel gas however demonstrate arterial inflow. Endometrium measures 9 TRANSVAGINAL: Unremarkable sonographic appearance of uterus. Endometrium measures 9 mm and is homogeneous. Right ovary measures 4.5 x 2.1 x 3.1 cm. The left ovary measures 2.7 x 3.8 x 2.2 cm. Arterial inflow and venous outflow documented bilaterally. Bilateral ovarian follicles with possible small bilateral involuting follicles. Trace free pelvic fluid it is likely physiologic. IMPRESSION: Unremarkable pelvic ultrasound. ACT 112: Negative or not required by law. The above report was generated using voice recognition software. It may contain grammatical, syntax or spelling errors. Electronically signed by: Franck Brambila M.D. 09/09/2023 7:03 PM Code Status & VTE Plan VTE Prophylaxis Plan VTE Prophylaxis will be ordered: Yes
[2023-09-09] MEDS ORDERED: ONDANSETRON INJ 2 MG/ML 2 ML VIAL IV PRN (22:57)
[2023-09-09] MEDS ORDERED: ACETAMINOPHEN 325 MG TAB PO PRN (22:57)
[2023-09-09] MEDS ORDERED: KETOROLAC TROMETHAMINE 15 MG/ML VIAL IV PRN (22:57)
--- OUTSIDE RECORDS SUMMARY | 2023-09-09 23:00 | External Medical Summary ---
Author Name Unknown Address Unknown Organization [id number]:[facility] [place] - [address] [place] [id number] Laboratory Report Ordering Provider Test Date Status DAGO AARON 09/08/2023 14:54:00 Preliminar y <10,000 colonies/ml mixed no rmal toño Observation Date Value Abnormality Reference (Units) Status Bacteria identified in Specimen by Culture 09/08/2023 14:54:00 [id number]^LACTOSE FERMENTING GRAM NEGATIVE BACILLI Abnormal Preliminary >100,000 colonies/mL Lactose fermenting gram negative bacilli
Test: Culture, Urine, Quantitative
Specimen Source: Urine, Unspecified
Specimen Type: Urine
Specimen Date: 09/08/2023 2:54 PM
Result Date: 09/09/2023 6:19 PM
Result Status: Preliminary result
Abnormal: Yes
Resulting Lab: [facility]
[address]
[facility] [id number]

CULTURE

>100,000 colonies/mL Lactose fermenting gram negative bacilli (Abnormal)

<10,000 colonies/ml mixed normal toño

null Performing Location [facility] [place] - [address] [place] [id number]
[2023-09-10] MEDS: SODIUM CHLORIDE 0.9% 1,000 ML IV SCH ×3 (00:28→18:02)
[2023-09-10 06:31] LABS: Basophils # (auto) 0.06 K/uL (0.00-0.20); Basophils % (auto) 0.4 %; Eosinophils # (auto) 0.31 K/uL (0.00-0.50); Eosinophils % (auto) 1.9 %; Hematocrit (blood only) 36.3 % (37.0-47.0); Hemoglobin 12.1 g/dl (12.0-16.0); Immature Granulocytes # (auto) 0.08 K/uL (0.01-0.20); Immature Granulocytes % (auto) 0.5 %; Lymphocytes % (auto) 26.2 %; Mean Corpuscular Hemoglobin 28.1 pg (25.0-34.0); Mean Corpuscular Hgb Conc 33.3 g/dL (32.0-36.0); Mean Corpuscular Volume 84.4 fL (80.0-100.0); Mean Platelet Volume 8.7 fL (9.4-12.4); Monocytes # (auto) 1.07 K/uL (0.11-0.59); Monocytes % (auto) 6.5 %; Neutrophils # (auto) 10.58 K/uL (1.40-6.50); Neutrophils % (auto) 64.5 %; Platelet Count 363 K/uL (130-400); RDW Coefficient of Variation 14.2 % (11.5-14.5); RDW Standard Deviation 43.8 fL (36.4-46.3)
[2023-09-10 06:33] LABS: Calcium 7.9 mg/dl (8.6-10.3); Creatinine Clr Calc Pharmacy 112.2 ml/min; Est GFR (African American) 117.8 ml/min; Est GFR (Non-African American) 101.7 ml/min; Potassium 4.1 mmol/L (3.5-5.1)
[2023-09-10] MEDS: CETIRIZINE HCL 10 MG TABLET PO SCH (08:10)
[2023-09-10] MEDS: FOLIC ACID 1 MG TAB PO SCH (08:10)
[2023-09-10] MEDS ORDERED: IBUPROFEN 200 MG TAB PO PRN (11:57)
[2023-09-10] MEDS: METHYLCELLULOSE 500 MG TAB PO SCH ×2 (12:05→21:28)
[2023-09-10] MEDS: PATIENT'S OWN CONTROLLED MED 1 PO SCH (12:06)
--- NOTE | 2023-09-10 13:53 | Hospitalist Progress Note ---
Date of Service September 10, 2023 Assessment & Plan (1) Ureteritis: Plan: 23-year-old female with past medical history significant for prediabetes, witnessed episode of apnea, irritable bowel syndrome with diarrhea, migraine, bipolar 1 disorder, seasonal allergies, adjustment reaction with anxiety and depression, comes because of back pain and abdominal pain going on for 1 week. Associated with nausea. Frequent micturition. No burning micturition. No blo od in the urine. No fevers. Has headaches. No sore throat. No cough. No chest pain or shortness of breath. Normal bowel movements. She is being managed for the following: Ascending ureteritis UTI Abdominal pain and back pain improving. Leukocytosis improving. IV Rocephin, will continue for now IV fluids, as needed ibuprofen and Tylenol Labs in AM. Follow urine culture. DVT prophylaxis: SCDs for now Disposition: Medical floor full code Admission and Anticipated Discharge Date Admission Date: September 09, 2023 Subjective Patient was seen and examined at bedside. Patient was sitting up in bed, on room air, resting comfortably, not in any acute distress. Patient reports improvement in her lower abdominal and back pain. Patient denies fever. Reports feeling better. Reports eating okay and moving bowels okay. Physical Exam Physical Exam: GENERAL: Alert and oriented x3. NAD, on RA. HEENT: No pallor, no icterus. Pupils equal, round and reactive to light. Oral mucosa moist. NECK: No JVD, no neck masses. HEART: S1 and S2 heard. Regular rate and rhythm. No murmur, no gallop. RESPIRATORY SYSTEM: Normal AP diameter. No accessory muscle use. No wheezing, no crackles. ABDOMEN: Soft, bowel sounds present, nontender, no distention. Lower abdominal discomfort noted on palpation. CENTRAL NERVOUS SYSTEM: No facial droop. Speech is clear. Obeys simple commands. Moves extremities. EXTREMITIES: No edema, no erythema seen. CVA angle tenderness -perceived as discomfort. Results & Data Results & Data Vital Signs (Past 12 Hours) Vital Signs Temp Pulse Resp BP Pulse Ox O2 Del Method 09/10/23 06:14 36.8 C 81 16 104/72 99 Room Air
[2023-09-10] MEDS ORDERED: LURASIDONE HCL 20 MG TAB PO SCH (15:30)
[2023-09-10] MEDS ORDERED: cefTRIAXone SODIUM 2,000 MG in DEXTROSE 5 % MINI-B 50 ML IV SCH ×2 (19:00→20:00)
[2023-09-10] MEDS ORDERED: traZODone HCL 50 MG TAB PO SCH (21:00)
[2023-09-10] MEDS ORDERED: TOPIRAMATE 50 MG PO SCH (21:00)
[2023-09-11] MEDS: SODIUM CHLORIDE 0.9% 1,000 ML IV SCH (04:02)
[2023-09-11 06:31] LABS: Hematocrit (blood only) 36.5 % (37.0-47.0); Hemoglobin 12.1 g/dl (12.0-16.0); Mean Corpuscular Hgb Conc 33.2 g/dL (32.0-36.0); Mean Corpuscular Volume 84.5 fL (80.0-100.0); Platelet Count 375 K/uL (130-400); RDW Coefficient of Variation 14.1 % (11.5-14.5); RDW Standard Deviation 43.8 fL (36.4-46.3); Red Blood Count 4.32 M/uL (4.20-5.40); White Blood Count 12.12 K/ul (4.8-10.8)
[2023-09-11 06:56] LABS: BUN Creatinine Ratio 15.9 (10-20); Calcium 8.1 mg/dl (8.6-10.3); Creatinine Clr Calc Pharmacy 144.2 ml/min; Est GFR (African American) 145.5 ml/min; Est GFR (Non-African American) 125.5 ml/min; Phosphorus 3.5 mg/dl (2.5-4.9); Potassium 4.1 mmol/L (3.5-5.1)
[2023-09-11] MEDS: CETIRIZINE HCL 10 MG TABLET PO SCH (08:04)
[2023-09-11] MEDS: METHYLCELLULOSE 500 MG TAB PO SCH (08:04)
[2023-09-11] MEDS: PATIENT'S OWN CONTROLLED MED 1 PO SCH (08:04)
[2023-09-11] MEDS: FOLIC ACID 1 MG TAB PO SCH (08:04)
--- NOTE | 2023-09-11 10:58 | Discharge Summary ---
Date of Service September 11, 2023 Admission HPI Per Admitting Provider 23-year-old female with past medical history significant for prediabetes, witnessed episode of apnea, irritable bowel syndrome with diarrhea, migraine, bipolar 1 disorder, seasonal allergies, adjustment reaction with anxiety and depression, comes because of back pain and abdominal pain going on for 1 week. Associated with nausea. Frequent micturition. No burning micturition. No blood in the urine. No fevers. Has headaches. No sore throat. No cough. No chest pain or shortness of breath. Normal bowel movements. Hemodynamically stable. Past medical history. As mentioned above Past surgical history. Colonoscopy and EGD. Tonsillectomy and adenoidectomy. Social history. Smoking. No alcohol use. No drug use. Family history. Mother has allergies. Hypertension. Psoriasis. Diabetes. Father has heart disorder. Allergies. Sister has ADHD. Admission Exam Per Admitting Provider General-Not in distress. Head- atraumatic Eyes- PERRL. ENT- oropharynx clear Neck- supple, no JVD. Lungs- clear to auscultation no wheezing or crackles Heart- regular rhythm; no murmur, no gallop. Abdomen- normal bowel sounds, soft, abdominal discomfort present, b/l cva tenderness. no distension Extremities- no pretibial edema, no erythema seen Neuro- alert, oriented x 3; PERRL, no facial palsy; no dysarthria; moves extremities. Skin- warm & dry Principal Diagnosis UTI, ascending ureteritis. Discharge Exam GENERAL: Alert and oriented x3. NAD, on RA. HEENT: No pallor, no icterus. Pupils equal, round and reactive to light. Oral mucosa moist. NECK: No JVD, no neck masses. HEART: S1 and S2 heard. Regular rate and rhythm. No murmur, no gallop. RESPIRATORY SYSTEM: Normal AP diameter. No accessory muscle use. No wheezing, no crackles. ABDOMEN: Soft, bowel sounds present, nontender, no distention. Lower abdominal discomfort noted on palpation - none today. CENTRAL NERVOUS SYSTEM: No facial droop. Speech is clear. Obeys simple commands. Moves extremities. EXTREMITIES: No edema, no erythema seen. CVA angle tenderness -perceived as discomfort - none today. Discharge Data Allergies Allergy/AdvReac Type Severity Reaction Status Date / Time coconut AdvReac Vomiting Verified 09/09/23 21:40 Consultations 09/09/23 20:05 ED Decision to Admit Stat Ordered Studies 09/09/23 16:28 CT abd pelvis IV con only Stat US pelvic complete Stat 09/09/23 16:29 US transvaginal Stat Hospital Course (1) Ureteritis: 23-year-old female with past medical history significant for prediabetes, witnessed episode of apnea, irritable bowel syndrome with diarrhea, migraine, bipolar 1 disorder, seasonal allergies, adjustment reaction with anxiety and depression, comes because of back pain and abdominal pain going on for 1 week. Associated with nausea. Frequent micturition. No burning micturition. No blood in the urine. No fevers. Has headaches. No sore throat. No cough. No chest pain or shortness of breath. Normal bowel movements. She was managed for the following: Ascending ureteritis UTI Abdominal pain and back pain improving. Leukocytosis improving. IV Rocephin, to p.o. antibiotic on discharge to complete the course. No bilateral flank discomfort or lower abdominal pain discomfort today. Patient hemodynamically stable, urine culture reviewed. DVT prophylaxis: SCDs for now Disposition: Medical floor full code Patient is being discharged home with following instruction at the point of discharge: Follow-up with your primary care physician within a week time and likely you will need labs CBC/CMP/magnesium/phosphorus. You will be given IV antibiotics today prior to leaving, continue your oral antibiotics from tomorrow morning. Complete the course as prescribed. If you have fever or increasing bilateral flank pain or lower abdominal pain while on antibiotic, report to emergency immediately. Take your medications as prescribed. Please make sure that you are able to get your medications today by calling your pharmacy before you leave the hospital so that your treatment continuity is not broken. Home Health Attestation I certify that this patient is under my care and that I, or a physicians delivery driver assistant working with me, had a face to-face encounter that meets the home health [id number] encounter requirements with this patient. The encounter with the patient was in whole, or in part, for the following medical condition, which is the primary reason for home health care (list medical condition): I certify that, based on my findings, the following services are medically necessary home health services: My clinical findings support the need for the above services because: Further, I certify that my clinical findings support that this patient is homebound (i.e. absences from home require considerable and taxing effort and are for medical reasons or sikh services or infrequently or of short duration when for other reasons) because: Certification for Home Health Services: Based on the above findings, I certify that this patient is confined to the home and needs intermittent fpc care, physical therapy and/or speech therapy or continues to need occupational therapy. The patient is under my care, and I have initiated the establishment of the plan of care. This patient will be followed by a physician who will periodically review the plan of care. Total Time Total Time Spent Total Time Spent (In Minutes): 35 Discharge Plan Discharge Items Patient Disposition: Home - Self-Care Reason For Visit: UTI, ASCENDING URETERITIS Discharge Diagnosis: UTI, ascending ureteritis. Condition on Discharge: Good Activity: Resume your previous activity Non-emergency contact: Primary Care Provider Call non-emergency contact if: you have any medication questions, your pain is not controlled and your temperature is above 101.5 Follow-up/Referrals: Catalina Meadows, [Primary Care Provider] - Diet: Regular Addtl Attending Provider Instructions: Follow-up with your primary care physician within a week time and likely you will need labs CBC/CMP/magnesium/phosphorus. You will be given IV antibiotics today prior to leaving, continue your oral antibiotics from tomorrow morning. Complete the course as prescribed. If you have fever or increasing bilateral flank pain or lower abdominal pain while on antibiotic, report to emergency immediately. Take your medications as prescribed. Please make sure that you are able to get your medications today by calling your pharmacy before you leave the hospital so that your treatment continuity is not broken. Pending Studies at Discharge: Yes Stand-Alone Forms: [facility] [employer], Smoking Cessation Medications and DC Order Prescriptions: New cefdinir 300 mg capsule 300 mg PO BID 5 Days Qty: 10 0RF Continued levocetirizine [Xyzal] 5 mg Tablet 5 mg PO QAM lurasidone 40 mg tablet 40 mg PO DAILYBD topiramate [Qudexy XR] 50 mg capsule,sprinkle,ER 24hr 50 mg PO HS trazodone 50 mg tablet 50 mg PO HS lisdexamfetamine [Vyvanse] 30 mg capsule 30 mg PO QAM folic acid 1 mg Tablet 1 mg PO DAILY Citrucel 500 mg Tablet 500 mg PO AMPM Discharge Orders: Discharge Order (Routine); Ordered 09/11/23 Ordered By: Amanda Mcpherson Admission Data Admit Date/Time: 09/09/23 21:20 Attending Provider: Amanda Mcpherson Admit Provider: Landry Pinto Primary Care Provider: Catalina Meadows Other Providers: Landry Pinto
[2023-09-11] MEDS ORDERED: CEFDINIR 300 MG CAP HOME PACK PO ONE (12:05)
[2023-09-11] MEDS ORDERED: cefTRIAXone SODIUM 2,000 MG in DEXTROSE 5 % MINI-B 50 ML IV SCH (16:00)
[2023-09-11] MEDS ORDERED: LURASIDONE HCL 20 MG TAB PO SCH (16:30)
[2023-09-12] MEDS ORDERED: CEFDINIR 300 MG CAP PO SCH (09:00)
== END 2023-09-11 17:01 | disposition home or self-care (01) | DRG 690 ==
LOC: ED 15:09 → EDINP 21:20 → 3N 22:56